=== PATIENT | female | born 1985 | race African-American/Black ===

== ENCOUNTER 2016-03-23 12:32 | Emergency (ER) | payer MEDICAID ==
--- NOTE | 2016-03-23 12:45 | ER Document Report ---
ED Medical Screen (RME) - General Stated Complaint: VOMITING, DIARRHEA Mode of Arrival: Ambulatory Information source: Patient Notes: Patient complains of nausea, vomiting, diarrhea that started today. Patient denies any urinary symptoms. Patient states she is currently 4 months . Patient denies any vaginal bleeding or discharge. hx: None I have greeted and performed a rapid initial assessment of this patient. A comprehensive ED assessment and evaluation of the patient, analysis of test results and completion of the medical decision making process will be conducted by additional ED providers. TRAVEL OUTSIDE OF THE [place] IN LAST 30 DAYS: No - Related Data Allergies/Adverse Reactions: No Known Allergies Allergy (Verified 11/06/14 15:00) Physical Exam - Vital signs Vitals: Temp Pulse Resp BP 97.9 F 100 18 116/67 03/23/16 12:42 03/23/16 12:42 03/23/16 12:42 03/23/16 12:42 - Abdominal Tenderness: Tender - Lower abdomen Course - Vital Signs Vital signs: Temp Pulse Resp BP Pulse Ox 97.9 F 100 18 116/67 03/23/16 12:42 03/23/16 12:42 03/23/16 12:42 03/23/16 12:42
[2016-03-23 14:09] LABS: ABSOLUTE EOSINOPHILS # (AUTO) 0.2 10^3/uL (0.0-0.6); ABSOLUTE LYMPHOCYTES (AUTO) 0.8 10^3/uL (0.5-4.7); ABSOLUTE MONOCYTES (AUTO) 0.4 10^3/uL (0.1-1.4); ABSOLUTE NEUT (AUTO) 8.8 10^3/uL (1.7-8.2); BASOPHILS % (AUTO) 0.3 % (0-2); EOSINOPHILS % (AUTO) 2.4 % (0-6); HEMATOCRIT 41.9 % (36.0-47.0); HEMOGLOBIN 13.5 g/dL (12.0-15.5); HGB HCT DIFFERENCE -1.4; LYMPHOCYTES % (AUTO) 7.9 % (13-45); MEAN CORPUSCULAR HEMOGLOBIN 29.4 pg (27.0-33.4); MEAN CORPUSCULAR HGB CONC 32.3 g/dL (32.0-36.0); MEAN CORPUSCULAR VOLUME 91 fl (80-97); MONOCYTES % (AUTO) 3.8 % (3-13); RED BLOOD COUNT 4.61 10^6/uL (3.72-5.28); RED CELL DISTRIBUTION WIDTH 15.2 % (11.5-14.0); SEGMENTED NEUTROPHILS % (AUTO) 85.6 % (42-78); WHITE BLOOD COUNT 10.3 10^3/uL (4.0-10.5)
[2016-03-23 14:13] LABS: APPEARANCE,URINE SLIGHTLY-CLOUDY; BILIRUBIN,URINE NEGATIVE (NEGATIVE); GLUCOSE, URINE NEGATIVE (NEGATIVE); KETONES,URINE 80 mg/dL (NEGATIVE); LEUKOCYTE ESTERASE,URINE NEGATIVE (NEGATIVE); NITRITE,URINE NEGATIVE (NEGATIVE); PROTEIN,URINE NEGATIVE (NEGATIVE); URINE SPECIFIC GRAVITY 1.026; UROBILINOGEN,URINE NEGATIVE mg/dL (<2.0)
[2016-03-23 14:22] LABS: ALANINE AMINOTRANSFERASE 16 U/L (9-52); ALKALINE PHOSPHATASE 73 U/L (38-126); ANION GAP 14 (5-19); ASPARTATE AMINO TRANSFERASE 19 U/L (14-36); BILIRUBIN,TOTAL 0.3 mg/dL (0.2-1.3); BLOOD UREA NITROGEN 7 mg/dL (7-20); CALCIUM 9.7 mg/dL (8.4-10.2); CARBON DIOXIDE 24 mmol/L (22-30); CHLORIDE 102 mmol/L (98-107); GLUCOSE 83 mg/dL (75-110); LIPASE 26.6 U/L (23-300); POTASSIUM 4.6 mmol/L (3.6-5.0); SODIUM 139.5 mmol/L (137-145); TOTAL PROTEIN 7.5 g/dL (6.3-8.2)
[2016-03-23] MEDS ORDERED: NORMAL SALINE 1000 ML 1,000 ML IV ONE (15:02)
--- NOTE | 2016-03-23 15:43 | ER Document Report ---
[id number] TRAVEL OUTSIDE OF THE [place] IN LAST 30 DAYS: No - HPI Onset: This morning Associated symptoms: Other - see narrative <LORRI MENDOZA - Last Filed: 03/23/16 16:15> <MITA VILLAFUERTE - Last Filed: 03/25/16 01:27> - General Chief Complaint: Nausea/Vomiting Stated Complaint: VOMITING, DIARRHEA Notes: Patient is a 30-year-old female that presents to the emergency department today with complaints of diarrhea and vomiting. 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 Patient also states that she is 16 weeks , A1. Patient states she has a slight headache as well. Patient denies any vaginal bleeding, discharge, urinary symptoms, or abdominal pain. (LORRI MENDOZA) - Related Data Allergies/Adverse Reactions: No Known Allergies Allergy (Verified 03/23/16 12:48) Past Medical History - General Information source: Patient - Social History Smoking Status: Never Smoker Cigarette use (# per day): No Chew tobacco use (# tins/day): No Frequency of alcohol use: None Drug Abuse: None Lives with: Family Family History: Reviewed & Not Pertinent Patient has suicidal ideation: No Patient has homicidal ideation: No - Medical History Medical History: Negative Surgical Hx: Negative <LORRI MENDOZA - Last Filed: 03/23/16 16:15> Review of Systems - Review of Systems Constitutional: No symptoms reported EENT: No symptoms reported Cardiovascular: No symptoms reported Respiratory: No symptoms reported Gastrointestinal: See HPI, Diarrhea, Vomiting Genitourinary: denies: Burning, Dysuria, Discharge Female Genitourinary: See HPI, . denies: Vaginal discharge, Vaginal bleeding Musculoskeletal: No symptoms reported Skin: No symptoms reported Hematologic/Lymphatic: No symptoms reported Neurological/Psychological: See HPI, Headaches -: Yes All other systems reviewed and negative <LORRI MENDOZA - Last Filed: 03/23/16 16:15> Physical Exam <LORRI MENDOZA - Last Filed: 03/23/16 16:15> <MITA VILLAFUERTE - Last Filed: 03/25/16 01:27> - Vital signs Vitals: Temp Pulse Resp BP 97.9 F 100 18 116/67 03/23/16 12:42 03/23/16 12:42 03/23/16 12:42 03/23/16 12:42 (LORRI MENDOZA) (MITA VILLAFUERTE) - Notes Notes: Physical Exam: General: Alert, appears well. HEENT: Normocephalic. Atraumatic. PERRL. Extraocular movements intact. Oropharynx clear. Neck: Supple. Non-tender. Respiratory: No respiratory distress. Clear and equal breath sounds bilaterally. Cardiovascular: Regular rate and rhythm. Abdominal: Normal Inspection. Non-tender. No distension. Normal Bowel Sounds. Back: Non-tender. No deformity or step off. Extremities: Moves all four extremities. Upper extremities: Normal inspection.Normal ROM. Lower extremities: Normal inspection. No edema. Normal ROM. Neurological: Normal cognition. AAOx4. Normal speech. Psychological: Normal affect. Normal Mood. Skin: Warm. Dry. Normal color. (LORRI MENDOZA) Course - Laboratory Result Diagrams: 03/23/16 13:45 03/23/16 13:45 <LORRI MENDOZA - Last Filed: 03/23/16 16:15> - Laboratory Result Diagrams: 03/23/16 13:45 03/23/16 13:45 <MITA VILLAFUERTE - Last Filed: 03/25/16 01:27> - Re-evaluation Re-evalutation: 03/23/16 18:55 I personally performed the services described in the documentation, reviewed and edited the documentation which was dictated to my scribe in my presence, and it accurately records my words and actions. Patient presents emergency Department with nausea vomiting and diarrhea that started this morning. She is partly 16 weeks . She's had ill contacts at home. No fevers chills chest pain shortness of breath flank pain urinary symptoms vaginal bleeding or discharge. She is well-appearing nontoxic on examination gave her IV fluids negative acute labs relieved with Reglan IV. Tolerating by mouth fluids serial dolling examinations no acute tenderness guarding rebound rigidity emergent need for pelvic ultrasound or ultrasound of the abdomen. We'll DC on Reglan 1-2 day follow-up primary care OB discussed reasons for ED return sooner (MITA VILLAFUERTE) - Vital Signs Vital signs: Temp Pulse Resp BP Pulse Ox 98.9 F 106 H 18 122/77 100 03/23/16 19:12 03/23/16 19:12 03/23/16 12:42 03/23/16 19:12 03/23/16 19:12 (LORRI MENDOZA) (MITA VILLAFUERTE) - Laboratory Laboratory results interpreted by me: 03/23/16 03/23/16 03/23/16 13:45 13:45 13:45 RDW 15.2 H Seg Neutrophils % 85.6 H Lymphocytes % 7.9 L Absolute Neutrophils 8.8 H Beta HCG, Quant 12332.00 H Urine Ketones 80 H Urine Ascorbic Acid 40 H (LORRI MENDOZA) (MITA VILLAFUERTE) Discharge <LORRI MENDOZA - Last Filed: 03/23/16 16:15> <MITA VILLAFUERTE - Last Filed: 03/25/16 01:27> - Discharge Clinical Impression: Vomiting and diarrhea Condition: Stable Disposition: HOME, SELF-CARE Additional Instructions: Vomiting Vomiting (or nausea without vomiting) can be caused by many other different problems. It can mean that something's wrong with the stomach, such as ulcers or inflammation or the intestinal tract, such as appendicitis. But it can also be a symptom of a problem that has nothing to do with the stomach or intestines. Vomiting is common with severe headaches, earaches, tonsillitis, and kidney infections, etc. We see it with pneumonia or heart attacks. Drugs can cause nausea and vomiting. Many abdominal problems cause vomiting; for example, gallstones, kidney stones, pancreatitis, and intestinal obstruction ( blocked bowels). In most cases, curing the vomiting depends on fixing the problem that caused it. For temporary relief, we may use an anti-nausea medicine. For home use, we can prescribe suppositories, chewable pills, pills that dissolve in the mouth, or liquid anti-nausea drugs. If the vomiting seems to be caused by a problem in the stomach, acid-suppressing drugs may be prescribed as well. It's important to avoid dehydration. Sip small amounts of clear liquids ( soft drinks, tea, broth, etc) . Try to take fluids frequently even if you are vomiting to prevent dehydration. Take increasing amounts of fluid and when liquids are being consumed successfully, advance to small amounts of bland food (toast, soups, mashed potatoes, etc.) until you are able to resume a regular diet. Avoid aspirin, tobacco, and alcohol. If the vomiting worsens, if the problem that's making you vomit worsens, or if there's evidence of bleeding in the stomach (such as black, tarry stool, or bloody or black vomit), you should return immediately. Also, return if abdominal pain worsens or becomes localized to one area or you develop high fever. Call your doctor if you aren't improved in 24 hours. Diarrhea Diarrhea means frequent, watery stools. There are many causes. Any problem that keeps the intestinal tract from absorbing water from the stool can lead to diarrhea. A sudden new diarrhea problem is usually caused by a virus, food sensitivity, toxic bacteria, or drugs. In this case, we expect the problem to go away soon. Testing is done only if you seem seriously ill from the diarrhea. If you have chronic diarrhea, or diarrhea that keeps coming back, we need to find out why. Chronic diarrhea can be due to inflammation of the bowels such as Crohn's disease or ulcerative colitis, food sensitivity such as intolerance to lactose or wheat protein, irritable bowel syndrome, and other problems. If your diarrhea is a significant problem but it's not clear why you have it, we' ll refer you to a specialist for further testing. During an episode of diarrhea, drink small amounts (two to six ounces) of clear liquids (soft drinks, sport drinks, herb teas, broth, etc). Take fluids frequently to prevent dehydration. It's usually not a problem to take mild anti- diarrhea medication such as Kaopectate or Pepto-Bismol. As the diarrhea eases, advance to small amounts of bland food (mashed potato, toast) for 24 hours. Call the physician if blood appears in your vomit or stool, if vomiting lasts longer than 24 hours, if the abdominal pain worsens or becomes localized to one area, if you develop high fever, or if you become lightheaded and weak. Prescriptions: Metoclopramide HCl [Reglan 10 mg Tablet] 1 - 2 tab PO ASDIR PRN #12 tablet PRN Reason: Referrals: Y[facility] CNM [Primary Care Provider] - Follow up tomorrow (In one to 2 days return for increasing worsening or new symptoms) Scribe Documentation - Scribe Written by Nickie:: Nickie Cortes, [id number] 03/23/16 acting as scribe for :: LORRI Glynn - Last Filed: 03/23/16 16:15>
[2016-03-23] MEDS ORDERED: METOCLOPRAMIDE HCL INJ/PF 10 MG/2 ML SDV IV ONE (15:58)
[2016-03-23 19:16] VITALS: BP 122/77
== END 2016-03-23 19:16 | disposition home or self-care (01) ==
LOC: ER 12:32
DX: R11.2 Nausea with vomiting, unspecified (principal); R19.7 Diarrhea, unspecified; Z3A.16 16 weeks gestation of pregnancy
CPT/HCPCS: 99284; 96361; 96374; 36415; 84702; 83690; 85025; 80053; 81001; J2765; J7030

== ENCOUNTER → 2016-04-08 | Outpatient (CLI) | payer MEDICAID | LOC: OD 12:09 | PROVIDERS: ATTEND Midwife | DX: J06.9 Acute upper respiratory infection, unspecified (principal); R05 Cough | CPT/HCPCS: 87804 ==

== ENCOUNTER 2016-04-09 20:38 | Emergency (ER) | payer MEDICAID ==
--- NOTE | 2016-04-09 21:23 | ER Document Report ---
ED Medical Screen (RME) - General Stated Complaint: FEVER Notes: Patient is a 30-year-old female presents emergency Department complaining of fevers, nonproductive cough, headache, chills and sneezing. Has been taking Tylenol Cold and cough severe at home. denies Sob, chest pain, dyspnea, sore throat. admits to sinus pressure (+) influenza vaccine I have greeted and performed a rapid initial assessment of this patient. A comprehensive ED assessment and evaluation of the patient, analysis of test results and completion of the medical decision making process will be conducted by additional ED providers. TRAVEL OUTSIDE OF THE [place] IN LAST 30 DAYS: No - Related Data Allergies/Adverse Reactions: No Known Allergies Allergy (Verified 03/23/16 12:48) Past Medical History Renal/ Medical History: Denies: Hx Peritoneal Dialysis Physical Exam - Vital signs Vitals: Temp Resp Pulse Ox 100.4 F 18 95 04/09/16 20:48 04/09/16 20:48 04/09/16 20:48 Course - Vital Signs Vital signs: Temp Pulse Resp BP Pulse Ox 100.4 F 18 95 04/09/16 20:48 04/09/16 20:48 04/09/16 20:48
--- NOTE | 2016-04-09 23:26 | ER Document Report ---
ED General - General Chief Complaint: Fever Stated Complaint: FEVER TRAVEL OUTSIDE OF THE [place] IN LAST 30 DAYS: No - HPI Patient complains to provider of: fever Notes: Patient coming in for a fever ongoing for the last few days. Patient states he was started on April 07 associated with rhinorrhea sinus pressure generalized malaise. Patient denies any flu shot this year. Patient is a to approximately 19 weeks . Patient [facility] Patient otherwise states she has been tolerating orals no nausea no vomiting no diarrhea. No recent travel no recent antibiotics. - Related Data Allergies/Adverse Reactions: No Known Allergies Allergy (Verified 03/23/16 12:48) Past Medical History - Social History Smoking Status: Never Smoker Chew tobacco use (# tins/day): No Frequency of alcohol use: None Drug Abuse: None Family History: Reviewed & Not Pertinent Patient has suicidal ideation: No Patient has homicidal ideation: No Renal/ Medical History: Denies: Hx Peritoneal Dialysis Review of Systems - Review of Systems Constitutional: Fever EENT: Nose congestion Cardiovascular: No symptoms reported Respiratory: No symptoms reported Gastrointestinal: No symptoms reported Genitourinary: No symptoms reported Female Genitourinary: No symptoms reported Musculoskeletal: No symptoms reported Skin: No symptoms reported Hematologic/Lymphatic: No symptoms reported Neurological/Psychological: No symptoms reported -: Yes All other systems reviewed and negative Physical Exam - Vital signs Vitals: Temp Resp Pulse Ox 100.4 F 18 95 04/09/16 20:48 04/09/16 20:48 04/09/16 20:48 Interpretation: Normal - General General appearance: Appears well, Alert - HEENT Head: Normocephalic, Atraumatic Eyes: Normal Pupils: PERRL - Respiratory Respiratory status: No respiratory distress Chest status: Nontender Breath sounds: Normal Chest palpation: Normal - Cardiovascular Rhythm: Regular Heart sounds: Normal auscultation Murmur: No - Abdominal Inspection: Normal, Gravid female Distension: No distension Bowel sounds: Normal Tenderness: Nontender Organomegaly: No organomegaly - Back Back: Normal, Nontender - Extremities General upper extremity: Normal inspection, Nontender, Normal color, Normal ROM , Normal temperature General lower extremity: Normal inspection, Nontender, Normal color, Normal ROM , Normal temperature, Normal weight bearing. No: Leeroy's sign - Neurological Neuro grossly intact: Yes Cognition: Normal Orientation: AAOx4 Bhupendra Coma Scale Eye Opening: Spontaneous Bhupendra Coma Scale Verbal: Oriented [place] Coma Scale Motor: Obeys Commands [place] Coma Scale Total: 15 Speech: Normal Motor strength normal: LUE, RUE, LLE, RLE Sensory: Normal - Psychological Associated symptoms: Normal affect, Normal mood - Skin Skin Temperature: Warm Skin Moisture: Dry Skin Color: Normal Course - Re-evaluation Re-evalutation: 04/09/16 23:20 Patient coming in for evaluation lab work shows the patient has flu type A. Patient will be discharged home encourage continue to take Tylenol. Patient's follow-[facility] with [facility]. - Vital Signs Vital signs: Temp Pulse Resp BP Pulse Ox 100.4 F 18 95 04/09/16 20:48 04/09/16 20:48 04/09/16 20:48 Discharge - Discharge Clinical Impression: Influenza A Qualifiers: Weeks of gestation: 19 weeks Qualified Code(s): Z3A.19 - 19 weeks gestation of Condition: Good Disposition: HOME, SELF-CARE Instructions: Influenza ([facility]) [phone], Fever ([facility]), ([facility]) Additional Instructions: Please continue to take Tylenol for fever control. Please follow-up with the women[facility] care clinic. Return to the ER for any concerning issues. Forms: Return to Work Referrals: BIN MONTAGUE MD [Primary Care Provider] - Follow up in 3-5 days
[2016-04-09 23:42] VITALS: BP 125/74
== END 2016-04-09 23:35 | disposition home or self-care (01) ==
LOC: ER 20:38
DX: J09.X2 Influenza due to identified novel influenza A virus with other respiratory manifestations (principal); R50.9 Fever, unspecified; R53.81 Other malaise; Z3A.19 19 weeks gestation of pregnancy
CPT/HCPCS: 71020; 87804; 99283

== ENCOUNTER 2016-08-18 10:07 | Inpatient (IN) | payer MEDICAID ==
[2016-08-18] MEDS ORDERED: RINGERS SOLUTION,LACTATED 1,000 ML IV PRN (10:23)
[2016-08-18] MEDS ORDERED: RINGERS SOLUTION,LACTATED 2,000 ML IV ONE (10:23)
[2016-08-18 10:53] LABS: APPEARANCE,URINE CLOUDY; BILIRUBIN,URINE NEGATIVE (NEGATIVE); GLUCOSE, URINE >=500 mg/dL (NEGATIVE); KETONES,URINE NEGATIVE (NEGATIVE); LEUKOCYTE ESTERASE,URINE LARGE (NEGATIVE); NITRITE,URINE NEGATIVE (NEGATIVE); PROTEIN,URINE NEGATIVE (NEGATIVE); UROBILINOGEN,URINE NEGATIVE mg/dL (<2.0)
[2016-08-18 11:20] LABS: URINE BARBITURATES SCREEN NEGATIVE; URINE METHADONE SCREEN NEGATIVE; URINE OPIATES LOW NEGATIVE; URINE PHENCYCLIDINE SCREEN NEGATIVE
[2016-08-18] MEDS ORDERED: DINOPROSTONE 10 MG VAGINAL INSERT.SR PV ONE (18:00)
--- NOTE | 2016-08-18 18:01 | RADIOLOGY REPORT (SQ) ---
EXAM DESCRIPTION: U/S OB LIMITED COMPLETED DATE/TIME: 08/18/2016 5:07 pm REASON FOR STUDY: DANIAL COMPARISON: None. TECHNIQUE: Limited transabdominal grayscale ultrasound for evaluation of specific requested obstetri sanjeev parameters. LIMITATIONS: None. FINDINGS: DANIAL: 4.3 cm. FHR: 149 beats per minute. PRESENTATION: Cephalic. OTHER: No other significant findings. IMPRESSION: LIMITED OBSTETRICAL ULTRASOUND WITH MEASURED PARAMETERS DELINEATED ABOVE. Trimester of : Third trimester - 28 weeks to delivery. TECHNICAL DOCUMENTATION: JOB ID: [id number] [employer]- All Rights Reserved
[2016-08-18] MEDS ORDERED: MAG HYDROX/AL HYDROX/SIMETH SUSP 30 ML UDCUP PO PRN (18:56)
[2016-08-18] MEDS ORDERED: ACETAMINOPHEN 325 MG TABLET PO PRN (18:56)
[2016-08-18] MEDS ORDERED: ZOLPIDEM TARTRATE 5 MG TABLET PO PRN (18:56)
[2016-08-18 19:25] LABS: ABSOLUTE BASOPHILS # (AUTO) 0.1 10^3/uL (0.0-0.2); ABSOLUTE EOSINOPHILS # (AUTO) 0.3 10^3/uL (0.0-0.6); ABSOLUTE LYMPHOCYTES (AUTO) 2.1 10^3/uL (0.5-4.7); ABSOLUTE NEUT (AUTO) 5.9 10^3/uL (1.7-8.2); BASOPHILS % (AUTO) 1.4 % (0-2); EOSINOPHILS % (AUTO) 3.5 % (0-6); HEMATOCRIT 35.6 % (36.0-47.0); HEMOGLOBIN 11.4 g/dL (12.0-15.5); HGB HCT DIFFERENCE -1.4; LYMPHOCYTES % (AUTO) 22.1 % (13-45); MEAN CORPUSCULAR HEMOGLOBIN 28.1 pg (27.0-33.4); MEAN CORPUSCULAR HGB CONC 32.1 g/dL (32.0-36.0); MEAN CORPUSCULAR VOLUME 88 fl (80-97); MONOCYTES % (AUTO) 10.8 % (3-13); RED BLOOD COUNT 4.06 10^6/uL (3.72-5.28); RED CELL DISTRIBUTION WIDTH 15.9 % (11.5-14.0); SEGMENTED NEUTROPHILS % (AUTO) 62.2 % (42-78); WHITE BLOOD COUNT 9.6 10^3/uL (4.0-10.5)
[2016-08-18] MEDS ORDERED: DINOPROSTONE 10 MG VAGINAL INSERT.SR ONE (19:31)
[2016-08-19] MEDS ORDERED: OXYTOCIN/NORMAL SALINE 20 UNIT/1,000 ML RTUINJ ONE (04:06)
--- NOTE | 2016-08-19 04:27 | L&D Progress Notes ---
PROGRESS NOTES Datetime Report Generated by CPN: 08/19/2016 04:27 PROGRESS NOTE Impression Other: Oligo induction Procedures: Sterile Vag Exam Plan: Induction Informed Consent Obtained: Vaginal Delivery; Section Delivery Comment: Repetitive lates refractory to oxygen, positioning, and fluid bolus a couple hours ago. Cervidil removed at that time and fhts now cat 1 but pt resting through ctxs. Discussed pitocin induction and if reptetive lates recur refractory to in utero resuscitation. Declines btl if need for arises. FETUS A Presentation: Vertex SIGNATURE SIGNATURE: [id number] Signature: with User ID: [email or web address]
[2016-08-19] MEDS ORDERED: EPHEDRINE SULFATE INJ 50 MG/1 ML AMPULE ONE (04:40)
[2016-08-19] MEDS ORDERED: FENTANYL/BUPIVACAINE/NS/PF 200 MCG/100 ML RTUINJ EPI ONE (04:40)
[2016-08-19] MEDS ORDERED: BUPIVACAINE HCL 0.25 % INJ/PF (2.5 MG/1 ML) 30 ML VIAL ONE (04:40)
[2016-08-19] MEDS ORDERED: PHENYLEPHRINE HCL INJ/PF 10 MG/1 ML SDV ONE (04:56)
[2016-08-19] MEDS ORDERED: FENTANYL CITRATE INJ/PF 100 MCG/2 ML AMPUL ONE (04:56)
[2016-08-19] MEDS: OXYTOCIN/NORMAL SALINE 1,000 ML IV PRN ×3 (05:58→13:50)
--- NOTE | 2016-08-19 09:44 | L&D Progress Notes ---
PROGRESS NOTES Datetime Report Generated by CPN: 08/19/2016 09:44 PROGRESS NOTE Impression: Normal Progression of Labor; Reassuring Heart Rate Procedures: Artificial ROM; Sterile Vag Exam Plan: Continue Present Management; Induction Informed Consent Obtained: Vaginal Delivery Vital Signs : Reviewed Comment: Feeling comfortable with epidural AROM, clear fluid Anticipate VAGINAL EXAM Dilatation: 4 Effacement: 80 Station: 0 MEMBRANES Membranes: Ruptured Amniotic Fluid Color: Clear FETUS A FHR - Baseline: 125 Monitoring: External US Variability: Moderate 6-25bpm Accelerations: 15X15 Decelerations: None FHR Category: Category I FETUS C SIGNATURE: [id number] Assignment: Sary Leggett MD Signature: with User ID: [email or web address] : with User ID: [email or web address]
[2016-08-19] MEDS ORDERED: LIDOCAINE 1% INJ-PF (10 MG/ML) 30 ML SDV ONE (10:20)
[2016-08-19] MEDS ORDERED: MISOPROSTOL 0.2 MG TABLET ONE (10:20)
[2016-08-19] MEDS ORDERED: DIPH/PERTUSS(ACELL)/TETANUS VAC/PF 0.5 ML SYR (>=10YO) IM PRN (11:22)
[2016-08-19] MEDS ORDERED: MEASLES,MUMPS&RUBELLA VACC/PF 0.5 ML VIAL SUBCUT PRN (11:22)
[2016-08-19] MEDS ORDERED: DIBUCAINE 1% OINTMENT 28 GM TP PRN (11:22)
[2016-08-19] MEDS ORDERED: ZOLPIDEM TARTRATE 5 MG TABLET PO PRN (11:22)
[2016-08-19] MEDS ORDERED: ACETAMINOPHEN WITH CODEINE #3 TABLET PO PRN ×2 (11:22)
[2016-08-19] MEDS ORDERED: OXYTOCIN/NORMAL SALINE 1,000 ML IV PRN (11:22)
[2016-08-19] MEDS ORDERED: BENZOCAINE/MENTHOL AEROSOL SPRAY 56 ML TOP PRN (11:22)
--- NOTE | 2016-08-19 13:38 | Delivery Summary ---
Del Sum A-C Datetime Report Generated by CPN: 08/19/2016 13:37 DELIVERY PERSONNEL DELIVERY PERSONNEL: [phone] Delivery Doctor:: Susan Owen CNM Labor and Delivery Nurse:: Tanisha Hill RNleisure studies professor Nurse:: Lauren Felix, DERIKC MATERNAL INFORMATION Delivery Anesthesia: Epidural Medications After Delivery: Pitocin Drip 20 Units/1000ml NSS Meds After Delivery Comment: 20 units Pitocin in 1 L NS bolusing per order Estimated Blood Loss (ml): 200 Maternal Complications: None Provider Comments: of vaiable male infant over intact perineum, head, shoulders, and body delivered without difficulty, with spontaneous cry and respirations. To maternal abdomen, cord clamped X2 and cut free by pts , after 2 min delay. Spontaneous delivery of placental via dey mechansim, appears intact, 3VC. Vagina and perineum inspected, no lacerations noted. Hemostasis acheived with external fundal massage and IV pitocin. Routine pp care. LABOR SUMMARY EDC: 08/31/2016 00:00 No. Babies in Womb: 1 Attempted: No Labor Anesthesia: Epidural LABOR INFORMATION Reason for Induction: Oligohydramnios Onset of Labor: 08/19/2016 04:17 Complete Dilatation: 08/19/2016 11:02 Cervical Ripening Agents: Cervidil Oxytocin: Induction Group B Beta Strep: NEGATIVE Antibiotics # of Doses: 0 Antibiotics Time of Last Dose: n/a Name of Antibiotic Given: n/a Steroids Given: None Reason Steroids Not Administered: Not Applicable MEMBRANES Membranes Rupture Method: Artificial Rupture of Membranes: 08/19/2016 09:26 Length of Rupture (hr): 1.75 Amniotic Fluid Color: Clear Amniotic Fluid Amount: Small Amniotic Fluid Odor: Normal STAGES OF LABOR Stage 1 hr: 6 Stage 1 min: 45 Stage 2 hr: 0 Stage 2 min: 9 Stage 3 hr: 0 Stage 3 min: 4 Total Time in Labor hr: 6 Total Time in Labor min: 58 VAGINAL DELIVERY Episiotomy: None Laceration Extension: N/A Laceration Type: None Laceration Repair: Not Applicable Laceration Repair Note: n/a Sponge Count Correct: N/A Sharps Count Correct: N/A CSECTION DELIVERY Primary Indication: N/A Secondary Indication: N/A CSection Incidence: N/A Labor: N/A Elective: N/A CSection Incision: N/A BABY A INFORMATION Infant Delivery Date/Time: 08/19/2016 11:11 Method of Delivery: Vaginal Born in Route : No : N/A Forceps: N/A Vacuum Extraction: N/A Shoulder Dystocia : No PRESENTATION/POSITION BABY A Presentation: Cephalic Cephalic Presentation: Vertex Vertex Position: Right Occipital Anterior Breech Presentation: N/A PLACENTA INFORMATION BABY A Placenta Delivery Time : 08/19/2016 11:15 Placenta Method of Delivery: Expressed Placenta Status: Delivered SCORES BABY A Heart Rate 1 min: >100 bpm Resp Effort 1 min: Good Cry Reflex Irritability 1 min: Cough or Sneeze or Pulls Away Muscle Tone 1 min: Active Motion Color 1 min: Body [place], Extremities Blue Resuscitation Effort 1 min: Tactile Stimulation SCORE 1 MIN: 9 Heart Rate 5 min: >100 bpm Resp Effort 5 min: Good Cry Reflex Irritability 5 min: Cough or Sneeze or Pulls Away Muscle Tone 5 min: Active Motion Color 5 min: Completely [place] Resuscitation Effort 5 min: N/A SCORE 5 MIN: 10 INFORMATION BABY A Gestational Age at Delivery: 38.2 Gestational Status: Early Term- 37- 38.6 Weeks Outcome : Liveborn Infant Condition : Stable Infant Sex: Male IDENTIFICATION BABY A Verification Date/Time: 08/19/2016 12:41 ID Band Number: [id number] Mother's Name Verified: Yes RN Verifying Infant: D Bellavance RNC/M Sergio RN WEIGHT/LENGTH BABY A Infant Birthweight (gm): 2500 Weight (lb): 5 Weight (oz): 8 Length (in): 18.75 Length (cm): 47.63 CORD INFORMATION BABY A No. Cord Vessels: 3 Nuchal Cord : N/A Nuchal Cord- Other: hand cord Cord Blood Taken: Yes-For Eval (Mom's Blood Type - or O+) Infant Suction: Mouth; Nose ASSESSMENT BABY A Infant Complications: None Physical Findings at Delivery: Within Normal Limits Infant Respirations: Appears Normal Skin to Skin: Yes Skin to Skin Time (min): 10 Park Keeper/ALS Called : No Care By: D. Reneence, RN BABY B INFORMATION : N/A SIGNATURES Assignment: Sary Leggett MD Signature: with User ID: [email or web address] : with User ID: [email or web address]
[2016-08-19] MEDS: IBUPROFEN 800 MG TABLET PO SCH ×2 (13:40→21:43)
[2016-08-19] MEDS ORDERED: IBUPROFEN 800 MG TABLET ONE (13:41)
--- NOTE | 2016-08-19 14:07 | Admission Physical ---
Datetime Report Generated by CPN: 08/19/2016 14:07 CURRENT ADMISSION Chief Complaint: Sent from OB Office for Evaluation and Treatment - Please Specify Chief Complaint Other: oligohydramnios Indication for Induction: Oligohydramnios Admit Plan: Initiate Labor Induction Protocol ALLERGIES Medication Allergies: No Medication Allergies: No Known Allergies (08/18/2016) Medication Allergies: No Known Allergies (03/23/2016) Latex: No Latex Allergies Food Allergies: none Environmental Allergies: Hayfever OBSTETRICAL HISTORY EDC: 08/31/2016 00:00 : 4 Para: 2 Term: 2 : 0 SAB: 1 IAB: 0 Ectopic: 0 Livin Cesareans: 0 VBACs: 0 Multiple Births: 0 Gestational Diabetes: No Rh Sensitization: No Incompetent Cervix: No LANDY: No Infertility: No ART Treatment: No Uterine Anomaly: No IUGR: No Hx Previous C/S: No Macrosomia: No Hx Loss/Stillborn: No PIH: No Hx : No Placenta Previa/Abruption: No Depression/PP Depression: No PTL/PROM: No Post Hemorrhage: No Current Procedures: Ultrasound Obstetrical History Comments: G-1 GIRL @ 39 WEEKS- 6.8 LBS, NO COMPLICATIONS G-2 BOY @ 39 WEEKS- 7.9 LBS, NO COMPLICATIONS G-3 EAB G-4 CURRENT SEE RECORDS Alcohol: No Marijuana : No Cocaine: No Other Illicit Drugs: No Cigarettes: Never Smoker. [id number] MEDICAL HISTORY Diabetes: No Blood Transfusion: No Pulmonary Disease (Asthma, TB): No Breast Disease: No Hypertension: No Corporate Administrator Surgery: No Heart Disease: No Hosp/Surgery: Yes Autoimmune Disorder: No Anesthetic Complications: No Kidney Disease: No Abnormal Pap Smear: No Neuro/Epilepsy: No Psychiatric Disorders: No Other Medical Diseases: No Hepatitis/Liver Disease: No Significant Family History: No Varicosities/Phlebitis: No Trauma/Violence : No Thyroid Dysfunction: No Medical History Comments: childbirth X 2 (Annotations: Data stored by [facility] on behalf of user) INFECTIOUS HISTORY Gonorrhea: No Genital Herpes: No Chlamydia: Yes Tuberculosis: No Syphilis: No Hepatitis: No HIV/AIDS Exposure: No Rash or Viral Illness: No HPV: Yes Infectious History Comments: CHLAMYDIA- Several years ago HPV- 2003 PHYSICAL EXAM General: Normal HEENT: Normal Neurologic: Normal Thyroid: Normal Heart: Normal Lungs: Normal Breast: Normal Back: Normal Abdomen: Normal Genitourinary Exam: Normal Extremities: Normal DTRs: Normal Pelvic Type: Adequate Physical Exam Comments: edgardo still less than 5 after iv fluids VAGINAL EXAM Dilatation: 4 Effacement: 80 Station: 0 MEMBRANES Membranes: Ruptured Amniotic Fluid Color: Clear FETUS A EGA: 38.1 Monitoring: External US FHR Category: Category I Presentation: Vertex Admit Comment: cervidil for ripening tonight and pit in am PLANS FOR LABOR AND DELIVERY Labor and Delivery: None; Cord Blood Banking Pain Management: Epidural Feeding Preference: Breast Benefit of Breast Feed Discussed: Yes Circumcision: Yes INFORMED CONSENT Informed Consent Obtained: Vaginal Delivery Informed Consent Obtained: Vaginal Delivery; Section Delivery Signature: with User ID: [email or web address]
[2016-08-19] MEDS: FERROUS SULFATE 325 MG TABLET PO SCH (17:47)
[2016-08-19] MEDS: DOCUSATE SODIUM 100 MG CAPSULE PO SCH (17:47)
[2016-08-20] MEDS: IBUPROFEN 800 MG TABLET PO SCH ×3 (05:22→21:59)
[2016-08-20 06:25] LABS: HEMATOCRIT 35.1 % (36.0-47.0); HGB HCT DIFFERENCE -2.1; MEAN CORPUSCULAR HEMOGLOBIN 27.8 pg (27.0-33.4); MEAN CORPUSCULAR HGB CONC 31.3 g/dL (32.0-36.0); MEAN CORPUSCULAR VOLUME 89 fl (80-97); RED BLOOD COUNT 3.95 10^6/uL (3.72-5.28); RED CELL DISTRIBUTION WIDTH 16.6 % (11.5-14.0); WHITE BLOOD COUNT 14.1 10^3/uL (4.0-10.5)
[2016-08-20] MEDS: DOCUSATE SODIUM 100 MG CAPSULE PO SCH ×2 (10:46→18:18)
[2016-08-20] MEDS: FERROUS SULFATE 325 MG TABLET PO SCH ×2 (10:46→18:19)
[2016-08-20] MEDS: SENNOSIDES/DOCUSATE 8.6-50 MG 1 EACH TABLET PO SCH (10:46)
[2016-08-20] MEDS: PRENATAL VITAMIN W-O CA NO5/FE FUMARATE/FA CAPSULE PO SCH (10:46)
--- NOTE | 2016-08-20 14:05 | PDOC PROGRESS REPORT ---
Subjective-OB Subjective: Post Delivery Day: 31 year old. ff@u-1 mild lochia no clots bonding well with offers no complaints at this time anticipate d/c in AM Physical Exam (OB) Vital Signs: Temp Pulse Resp BP Pulse Ox 98.0 F 71 18 116/71 100 08/20/16 08:03 08/20/16 08:03 08/20/16 08:03 08/20/16 08:03 08/20/16 08:03 Intake & Output 08/19/16 08/20/16 08/21/16 06:59 06:59 06:59 Weight 78.75 kg - Lochia Lochia Amount: Scant < 10 ml Lochia Color: Rubra/Red - Abdomen Description: Soft, Flat Hernia Present: No Fundal Description: Firm, Midline Fundal Height: u/3 - u/4 Objective-Diagnostic Laboratory: 08/20/16 06:09 08/20/16 06:09 WBC 14.1 H RBC 3.95 Hgb 11.0 L Hct 35.1 L MCV 89 MCH 27.8 MCHC 31.3 L RDW 16.6 H Plt Count 214
[2016-08-21] MEDS: IBUPROFEN 800 MG TABLET PO SCH (05:42)
[2016-08-21 08:34] VITALS: BP 119/75
[2016-08-21] MEDS: FERROUS SULFATE 325 MG TABLET PO SCH (09:33)
[2016-08-21] MEDS: SENNOSIDES/DOCUSATE 8.6-50 MG 1 EACH TABLET PO SCH (09:33)
[2016-08-21] MEDS: DOCUSATE SODIUM 100 MG CAPSULE PO SCH (09:33)
[2016-08-21] MEDS: PRENATAL VITAMIN W-O CA NO5/FE FUMARATE/FA CAPSULE PO SCH (09:34)
--- NOTE | 2016-08-21 09:46 | PDOC PROGRESS REPORT ---
Subjective-OB Subjective: Post Delivery Day: 31 year old. Denies any needs at this time Doing well, ready to go home, scant bleeding, ambulating, feeding baby, breast soft, voiding Physical Exam (OB) Vital Signs: Temp Pulse Resp BP Pulse Ox 98.4 F 58 L 17 119/75 100 08/21/16 07:33 08/21/16 07:33 08/21/16 07:33 08/21/16 07:33 08/21/16 07:33 - Lochia Lochia Amount: Scant < 10 ml Lochia Color: Rubra/Red - Abdomen Description: Soft Hernia Present: No Fundal Description: Firm, Midline Fundal Height: u/u - u/2 Objective-Diagnostic Laboratory: 08/20/16 06:09 Assessment and Plan(PN) - Assessment and Plan (1) Vaginal delivery Is this a current diagnosis for this admission?: Yes (2) Oligohydramnios Qualifiers: Fetus number: single or unspecified fetus Is this a current diagnosis for this admission?: Yes - Time Spent with Patient Time with patient: Less than 15 minutes Medications reviewed and adjusted accordingly: Yes - Disposition Anticipated Discharge: Home Within: Other - home today
--- NOTE | 2016-08-21 09:49 | PDOC DISCHARGE SUMMARY ---
Final Diagnosis Discharge Date: 08/21/16 - Final Diagnosis (1) Vaginal delivery Is this a current diagnosis for this admission?: Yes (2) Oligohydramnios Is this a current diagnosis for this admission?: Yes Discharge Data - Discharge Medication Home Medications: Ferrous Sulfate [Iron] 325 mg PO DAILY 08/18/16 Pnv with Ca,No.72/Iron/FA [Pnv Plus Multivit Tab] 1 tab PO DAILY Gestational Age: 38.2 Reason(s) for Admission: Induction of Labor Admission Note: oligohydramnios Procedures: NST, Ultrasound Intrapartum Procedure(s): Spontaneous Vaginal Delivery - Data Baby 1 Male at 1 minute: 9 at 5 minutes: 10 Weight: 2.495 kg Home with Mother: Yes Complications: No - Diagnosis Test Laboratory: Temp Pulse Resp BP Pulse Ox 98.4 F 58 L 17 119/75 100 08/21/16 07:33 08/21/16 07:33 08/21/16 07:33 08/21/16 07:33 08/21/16 07:33 08/18/16 08/18/16 08/20/16 10:20 19:00 06:09 RBC 4.06 3.95 Hgb 11.4 L 11.0 L Hct 35.6 L 35.1 L Urine Opiates Screen NEGATIVE - Discharge information/Instructions Discharge Activity: Activity As Tolerated Discharge Diet: As Tolerated, Regular Disposition: HOME, SELF-CARE Follow up with: [facility] in: 4, Weeks
== END 2016-08-21 12:49 | disposition home or self-care (01) | DRG 775 ==
LOC: LC 10:07 → LR 18:06 → 2S 08-19 14:06
PROVIDERS: ADMIT Specialist; ATTEND Specialist
PROC: 4A1HXCZ Monitoring of Products of Conception, Cardiac Rate, External Approach (ICD-10-PCS; 2016-08-18)
PROC: 10E0XZZ Delivery of Products of Conception, External Approach (ICD-10-PCS; principal; 2016-08-19)
PROC: 3E033VJ Introduction of Other Hormone into Peripheral Vein, Percutaneous Approach (ICD-10-PCS; 2016-08-19)
PROC: 10907ZC Drainage of Amniotic Fluid, Therapeutic from Products of Conception, Via Natural or Artificial Opening (ICD-10-PCS; 2016-08-19)
DX: O41.03X0 Oligohydramnios, third trimester, not applicable or unspecified (principal); O69.9XX0 Labor and delivery complicated by cord complication, unspecified, not applicable or unspecified; Z3A.38 38 weeks gestation of pregnancy; Z37.0 Single live birth
CPT/HCPCS: 36415; 59025; 76815; 80307; 81005; 85025; 85027; 86592; 86850; 86900; 86901; J2370; J2590; J3010; J3490

== ENCOUNTER 2018-09-20 21:35 | Emergency (ER) | payer SELFPAY ==
[2018-09-20] MEDS ORDERED: ACETAMINOPHEN 325 MG TABLET PO ONE (23:18)
--- NOTE | 2018-09-21 00:25 | ER Document Report ---
ED Medical Screen (RME) - General TRAVEL OUTSIDE OF THE [place] IN LAST 30 DAYS: No - General Chief Complaint: Fever Stated Complaint: FEVER,CHILLS,PAIN,DIZZINESS Time Seen by Provider: 09/21/18 00:08 Primary Care Provider: NIALL HITCHCOCK MD [ACTIVE STAFF] - Follow up as needed Notes: Patient is a 33-year-old female who presents to the emergency department with a chief complaint of fever. Patient states that Tuesday she was outside walking around when she was bit by few fire ants on the left foot. Patient states that night it got hot and swollen and that is when she started to feel feverish. Since then the swelling and redness have improved to the left foot. Patient denies any other insect bites. Patient states she has been alternating Tylenol and ibuprofen without relief. Patient states her temp was 102.5 at home. Patient reports a sore throat, left ear pain, dry cough. Patient states she has not had any nausea vomiting or diarrhea. Patient denies sick contacts. Patient denies neck pain or neck stiffness. Patient states she has had a headache all over. Patient states she has had joint pain. Patient said she had a decreased appetite but has been eating and drinking. (LIVE RUIZ) - Related Data Allergies/Adverse Reactions: No Known Allergies Allergy (Verified 08/18/16 10:24) Past Medical History Renal/ Medical History: Denies: Hx Peritoneal Dialysis Physical Exam - HEENT Head: Normocephalic Eyes: Normal Conjunctiva: Normal Cornea: Normal Pupils: PERRL Ears: Normal External canal: Normal Tympanic membrane: Normal Sinus: Normal Nasal: Normal Mouth/Lips: Normal Mucous membranes: Normal Pharynx: Erythema, Exudate - Exudate to left tonsil Neck: Shotty nodes - Abdominal Inspection: Normal Distension: No distension Bowel sounds: Normal Tenderness: Nontender Organomegaly: No organomegaly - Vital signs Vitals: Temp Pulse Resp BP Pulse Ox 103.1 F H 135 H 20 133/84 H 96 09/20/18 22:08 09/20/18 22:08 09/20/18 22:08 09/20/18 22:08 09/20/18 22:08 Course - Re-evaluation Re-evalutation: 09/21/18 00:24 I have greeted and performed a rapid initial assessment of this patient. A comprehensive ED assessment and evaluation of the patient, analysis of test results and completion of the medical decision making process will be conducted by additional ED providers. (LIVE RUIZ) - Vital Signs Vital signs: Temp Pulse Resp BP Pulse Ox 98.6 F 105 H 16 127/80 H 98 09/21/18 02:13 09/21/18 02:13 09/21/18 02:13 09/21/18 02:13 09/21/18 02:13 - Laboratory Laboratory results interpreted by me: 09/21/18 00:40 Urine Blood SMALL H Ur Leukocyte Esterase TRACE H Doctor's Discharge - Discharge Clinical Impression: Insect bite Qualifiers: Encounter type: initial encounter Site of insect bite: foot Laterality: right Qualified Code(s): S90.861A - Insect bite (nonvenomous), right foot, initial encounter Condition: Good Disposition: HOME, SELF-CARE Additional Instructions: The exact cause of your symptoms today is uncertain, but given what we have discussed today your being empirically treated with doxycycline for [place] Spotted fever. This is a tickborne illness that is very common in [place]. Please take all the antibiotics even if you are feeling better. Please return to the emergency department immediately if you develop worsening of your headache, confusion, persistent vomiting, or have any other symptoms that are worrisome to you. Please follow-up with your primary care doctor in the next 24-48 hours. As we discussed blood work will get sent to an outside lab and will take a couple of days to result. If it is positive the culture nurse will call you, if you do not hear anything by next Tuesday please call them at [phone]. Please take the antibiotics until they are completed even if you are feeling better. Prescriptions: Doxycycline Hyclate 100 mg PO BID #14 capsule Forms: Return to Work Referrals: NIALL HITCHCOCK MD [ACTIVE STAFF] - Follow up as needed
[2018-09-21 01:05] LABS: APPEARANCE,URINE SLIGHTLY-CLOUDY; BILIRUBIN,URINE NEGATIVE (NEGATIVE); COLOR,URINE STRAW; GLUCOSE, URINE NEGATIVE (NEGATIVE); KETONES,URINE NEGATIVE (NEGATIVE); LEUKOCYTE ESTERASE,URINE TRACE (NEGATIVE); NITRITE,URINE NEGATIVE (NEGATIVE); PROTEIN,URINE NEGATIVE (NEGATIVE); URINE SPECIFIC GRAVITY 1.006; UROBILINOGEN,URINE NEGATIVE mg/dL (<2.0)
[2018-09-21] MEDS ORDERED: DOXYCYCLINE HYCLATE 100 MG TABLET PO ONE (03:53)
[2018-09-21 04:27] VITALS: BP 137/75
--- NOTE | 2018-09-21 04:38 | ER Document Report ---
ED General - General Chief Complaint: Fever Stated Complaint: FEVER,CHILLS,PAIN,DIZZINESS Time Seen by Provider: 09/21/18 00:08 Primary Care Provider: NIALL HITCHCOCK MD [ACTIVE STAFF] - Follow up as needed Notes: 33-year-old female who presents to the emergency department with a chief complaint of fever. Patient states that Tuesday she was outside walking around when she thought she was bit by few fire ants on the left foot. Patient states that night it got hot and swollen and that is when she started to feel feverish. Since then the swelling and redness have improved to the left foot but patient has been having intermittent fevers and joint pain.. Patient denies any other insect bites. Patient states she has been alternating Tylenol and ibuprofen without relief. Patient states her temp was 102.5 at home. Patient reports a sore throat, left ear pain, dry cough. Patient states she has not had any nausea vomiting or diarrhea. Patient denies sick contacts. Patient denies neck pain or neck stiffness. Patient states she has had a headache all over. Patient states she has had joint pain. Patient said she had a decreased appetite but has been eating and drinking. TRAVEL OUTSIDE OF THE [place] IN LAST 30 DAYS: No - Related Data Allergies/Adverse Reactions: No Known Allergies Allergy (Verified 08/18/16 10:24) Past Medical History - Social History Smoking Status: Unknown if Ever Smoked Family History: Reviewed & Not Pertinent Patient has suicidal ideation: No Patient has homicidal ideation: No Renal/ Medical History: Denies: Hx Peritoneal Dialysis Review of Systems - Review of Systems Constitutional: See HPI EENT: No symptoms reported Cardiovascular: See HPI Respiratory: See HPI Gastrointestinal: See HPI Genitourinary: No symptoms reported Female Genitourinary: No symptoms reported Musculoskeletal: No symptoms reported Skin: No symptoms reported Hematologic/Lymphatic: No symptoms reported Neurological/Psychological: See HPI Physical Exam - Vital signs Vitals: Temp Pulse Resp BP Pulse Ox 103.1 F H 135 H 20 133/84 H 96 09/20/18 22:08 09/20/18 22:08 09/20/18 22:08 09/20/18 22:08 09/20/18 22:08 - Notes Notes: PHYSICAL EXAMINATION: Reviewed vital signs and charting by RN GENERAL: Alert, interacts well. No acute distress. HEAD: Normocephalic, atraumatic. EYES: Pupils equal and round. Extraocular movements intact. ENT: Oral mucosa moist, tongue midline. NECK: Full range of motion. Trachea midline. LUNGS: Clear to auscultation bilaterally, no wheezes, rales, or rhonchi. No res piratory distress. HEART: Regular rate and rhythm. No murmur ABDOMEN: soft, non-tender. No distention. Bowel sounds present EXTREMITIES: Moves all 4 extremities spontaneously. No edema, No cyanosis. PSYCH: Normal affect, normal mood. SKIN: Warm, dry, normal turgor. No rashes or lesions noted. Course - Re-evaluation Re-evalutation: 09/21/18 04:40 Overall well-appearing and does not appear toxic. I briefly discussed patient with Dr. Amezcua, attending physician, about her vague flulike symptoms. She was initially febrile at 103.2 and tachycardic at approximately 130 but repeat vitals show that she was afebrile and her heart was done to 110. When I assessed her and did a manual pulse check her heart rate was 102. Recom mendation was to obtain a [place] spotted fever titer for IgG and Ig M and treat prophylactically with doxycycline for 1 week. Patient received first dose here in the emergency department. I gave her instructions for follow-up with the culture nurse. Patient was given strict return precautions and discharge instructions - Vital Signs Vital signs: Temp Pulse Resp BP Pulse Ox 99.5 F 96 18 137/75 H 98 09/21/18 04:26 09/21/18 04:26 09/21/18 04:26 09/21/18 04:26 09/21/18 04:26 - Laboratory Laboratory results interpreted by me: 09/21/18 00:40 Urine Blood SMALL H Ur Leukocyte Esterase TRACE H Discharge - Discharge Clinical Impression: Insect bite Qualifiers: Encounter type: initial encounter Site of insect bite: foot Laterality: right Qualified Code(s): S90.861A - Insect bite (nonvenomous), right foot, initial encounter Condition: Good Disposition: HOME, SELF-CARE Additional Instructions: The exact cause of your symptoms today is uncertain, but given what we have discussed today your being empirically treated with doxycycline for [place] Spotted fever. This is a tickborne illness that is very common in [place]. Please take all the antibiotics even if you are feeling better. Please return to the emergency department immediately if you develop worsening of your headache, confusion, persistent vomiting, or have any other symptoms that are worrisome to you. Please follow-up with your primary care doctor in the next 24-48 hours. As we discussed blood work will get sent to an outside lab and will take a couple of days to result. If it is positive the culture nurse will call you, if you do not hear anything by next Tuesday please call them at [phone]. Please take the antibiotics until they are completed even if you are feeling better. Prescriptions: Doxycycline Hyclate 100 mg PO BID #14 capsule Forms: Return to Work Referrals: NIALL HITCHCOCK MD [ACTIVE STAFF] - Follow up as needed
[2018-09-23 02:36] LABS: ROCKY MTN SPOTTED FEV IGG EIA Negative (Negative)
[2018-09-23 18:22] LABS: ROCKY MTN SPOTTED FEVER IGM AB 0.53 index (0.00-0.89)
== END 2018-09-21 04:27 | disposition home or self-care (01) ==
LOC: ER 21:35
DX: S90.862A Insect bite (nonvenomous), left foot, initial encounter (principal); W57.XXXA Bitten or stung by nonvenomous insect and other nonvenomous arthropods, initial encounter; R50.9 Fever, unspecified; R42 Dizziness and giddiness; R00.0 Tachycardia, unspecified; J02.9 Acute pharyngitis, unspecified; H92.02 Otalgia, left ear
CPT/HCPCS: 36415; 81001; 81025; 86308; 86757; 87070; 87880; 99283

== ENCOUNTER → 2019-02-09 | Outpatient (CLI) | payer OTHER ==
[2019-02-09 15:18] LABS: CHLAM PCR NOT DETECTED (NOT DETECT)
== END ==
LOC: OD 11:33
PROVIDERS: ATTEND Nurse Practitioner Family
DX: R30.0 Dysuria (principal); R82.71 Bacteriuria
CPT/HCPCS: 87086; 87088; 87186; 87491; 87591